=== PATIENT | female | born 1990 ===

== ENCOUNTER 2018-06-16 07:47 | Emergency (ER) | payer MEDICAID ==
[2018-06-16 07:47] VITALS: BMI 45.4
[2018-06-16 08:03] VITALS: TEMP 99.2
[2018-06-16] MEDS ORDERED: Sodium Chloride 0.9% 1,000 ML IV STA (08:26)
--- NOTE | 2018-06-16 08:43 | ED PDOC ---
Arrival/HPI - General Chief Complaint: Fever Time Seen by Provider: 06/16/18 07:50 Historian: Patient - History of Present Illness Narrative History of Present Illness (Text): 06/16/18 08:49 27 year old female, whose past medical history includes hypertension, asthma, hypthyroidism, and cholelithiasis, who presents to the emergency department complaining of fever, generalized body aches, and sinus congestion, for the past day. Patient notes her fever was 104 degrees at home and notes associated sore throat, cough, nausea, and chest discomfort. She states she has taken Motrin and Theraflu with no improvement. Of note, patent's LNMP was 1 week ago. She denies headache, dizziness, shortness of breath, dyspnea on exertion, abdominal pain, vomiting, diarrhea, back pain, neck pain, or any other complaint. Time/Duration: 24 hours Symptom Onset: Gradual Symptom Course: Unchanged Activities at Onset: Light Context: Home Past Medical History - Provider Review Nursing Documentation Reviewed: Yes - Past History Past History: No Previous - Infectious Disease Hx of Infectious Diseases: None - Tetanus Immunization Tetanus Immunization: Unknown - Reproductive Menopause: No - Past Medical History Past Medical History: No Previous - Cardiac Hx Hypertension: Yes Other/Comment: MORBID OBESITY - Pulmonary Hx Respiratory Disorders: No Hx Asthma: Yes (mild) - Neurological Hx Neurological Disorder: No - HEENT Hx HEENT Disorder: No - Renal Hx Renal Disorder: No - Endocrine/Metabolic Hx Endocrine Disorders: Yes Hx Hypothyroidism: Yes - Hematological/Oncological Hx Blood Disorders: No Hx AIDS: No - Integumentary Hx Dermatological Disorder: No - Musculoskeletal/Rheumatological Hx Musculoskeletal Disorders: No Hx Back Pain: Yes Hx Falls: Yes - Gastrointestinal Hx Gastrointestinal Disorders: Yes (CHOLELITHIASIS) - Genitourinary/Gynecological Hx Reproductive Disorders: Yes (C SECTION) - Psychiatric Hx Psychophysiologic Disorder: No Hx Substance Use: No - Surgical History Hx Cholecystectomy: Yes (2012) Other/Comment: removal of keloid both ears. Had received radiation for keloid - Anesthesia Hx Anesthesia: Yes Hx Anesthesia Reactions: No Hx Malignant Hyperthermia: No - Suicidal Assessment Feels Threatened In Home Enviroment: No Family/Social History - Physician Review Nursing Documentation Reviewed: Yes Family/Social History: No Known Family HX Smoking Status: Never Smoked Hx Alcohol Use: No Hx Substance Use: No Hx Substance Use Treatment: No Allergies/Home Meds Allergies/Adverse Reactions: Allergies No Known Allergies Allergy (Verified 03/25/15 16:27) Home Medications: Home Meds Medication Instructions Recorded Confirmed Bacitracin OINT 1 applic TP BID 03/27/15 03/29/15 Cyclobenzaprine [Cyclobenzaprine 10 mg PO TID 03/27/15 03/29/15 HCl] Levothyroxine [Synthroid] 25 mcg PO ACB 03/27/15 03/29/15 DULoxetine [Cymbalta] 20 mg PO DAILY 03/29/15 03/29/15 Gabapentin [Neurontin] 600 mg PO TID 03/29/15 03/29/15 Methylprednisolone [Medrol] 4 mg PO BID 03/29/15 03/29/15 methylPREDNISolone [Medrol] 4 mg PO DAILY 03/29/15 03/29/15 methylPREDNISolone 4 mg PO TID 03/29/15 03/29/15 [Methylprednisolone] oxyCODONE/Acetaminophen [Percocet 2 tab PO Q4 PRN 03/29/15 03/29/15 5/325 mg Tab] Review of Systems - Physician Review All systems were reviewed & negative as marked: Yes - Review of Systems Constitutional: Fevers, Other (generalized body aches) ENT: Sore Throat, Sinus Congestion Respiratory: Cough. absent: SOB Cardiovascular: Chest Pain Gastrointestinal: Nausea. absent: Abdominal Pain, Vomiting Genitourinary Female: absent: Dysuria, Frequency Musculoskeletal: absent: Back Pain, Neck Pain Neurological: absent: Headache, Dizziness Physical Exam Vital Signs Reviewed: Yes Vital Signs Temp Pulse Resp BP Pulse Ox 06/16/18 07:59 99.2 F 112 H 20 106/70 97 Temperature: Afebrile Blood Pressure: Normal Pulse: Tachycardic Respiratory Rate: Normal Appearance: Positive for: Well-Appearing, Non-Toxic, Comfortable Pain Distress: None Mental Status: Positive for: Alert and Oriented X 3 - Systems Exam Head: Present: Atraumatic, Normocephalic Pupils: Present: PERRL Extroacular Muscles: Present: EOMI Conjunctiva: Present: Normal Mouth: Present: Moist Mucous Membranes Pharnyx: Present: EXUDATE (exudate present on the left tonsil), TONSILS ENLARGED (bilateral tonsilar swelling) Nose (Internal): Present: Other (sinus pressure) Neck: Present: Normal Range of Motion. No: Lymphadenopathy (no cervical adenopathy noted) Respiratory/Chest: Present: Clear to Auscultation, Good Air Exchange. No: Respiratory Distress, Accessory Muscle Use Cardiovascular: Present: Regular Rate and Rhythm, Normal S1, S2. No: Murmurs Abdomen: Present: Other (abdomen soft). No: Tenderness, Distention, Peritoneal Signs Back: Present: Normal Inspection Upper Extremity: Present: Normal Inspection. No: Cyanosis, Edema Lower Extremity: Present: Normal Inspection. No: Edema Neurological: Present: GCS=15, CN II-XII Intact, Speech Normal Skin: Present: Warm, Dry, Normal Color. No: Rashes Psychiatric: Present: Alert, Oriented x 3, Normal Insight, Normal Concentration Medical Decision Making ED Course and Treatment: 06/16/18 08:34 Impression: 27 year old female who presents to the emergency department complaining of fever, generalized body aches, and sinus congestion. Differential Diagnosis included but are not limited to: Influenza Strep throat Plan: -- Labs -- Chest X-ray -- IV Fluids -- Toradol -- POC urine Test -- Influenza A B -- Rapid Strep -- Reassess and disposition Prior Visits: Notes and results from previous visits were reviewed. Progress Notes: - Lab Interpretations Lab Results: 06/16/18 09:05 06/16/18 09:05 Lab Results 06/16/18 09:05: Grp A Beta Strep Ag Positive H 06/16/18 09:05: Sodium 137, Potassium 3.6, Chloride 105, Carbon Dioxide 27, Anion Gap 8 L, BUN 7, Creatinine 0.7, Est GFR ( Amer) > 60, Est GFR (Non- Af Amer) > 60, Random Glucose 110, Calcium 8.7, Total Bilirubin 0.4, AST 19, ALT 21, Alkaline Phosphatase 75, Total Protein 7.1, Albumin 3.9, Globulin 3.3, Albumin/Globulin Ratio 1.2 06/16/18 09:05: Influenza Typ A,B (EIA) Negative for flu a/b 06/16/18 09:05: WBC 14.9 H, RBC 4.13, Hgb 11.3 L, Hct 34.7 L, MCV 84.0, MCH 27.4, MCHC 32.6, RDW 14.1, Plt Count 262, MPV 9.7, Neut % (Auto) 81.8 H, Lymph % (Auto) 8.4 L, Mckinley % (Auto) 9.6 H, Eos % (Auto) 0.1 L, Baso % (Auto) 0.1, Lymph # (Auto) 1.3, Mckinley # (Auto) 1.4 H, Eos # (Auto) 0.0, Baso # (Auto) 0.02, Absolute Neuts (auto) 12.21 H I have reviewed the lab results: Yes - RAD Interpretation Narrative RAD Interpretations (Text): 06/16/18 13:02 Chest X-ray reviewed by radiologist, shows: IMPRESSION: No active disease. Radiology Orders: 06/16/18 08:26 CHEST PORTABLE [RAD] Stat Community Placement Worker: Radiologist - Medication Orders Current Medication Orders: Sodium Chloride (Sodium Chloride 0.9%) 1,000 mls @ 999 mls/hr IV .Q1H1M STA Stop: 06/16/18 09:26 Discontinued Medications Ketorolac Tromethamine (Toradol) 30 mg IVP STAT STA Stop: 06/16/18 08:27 - Scribe Statement The provider has reviewed the documentation as recorded by the Scribe Aviva Neal Provider Scribe Attestation: All medical record entries made by the Scribe were at my direction and personally dictated by me. I have reviewed the chart and agree that the record accurately reflects my personal performance of the history, physical exam, medical decision making, and the department course for this patient. I have also personally directed, reviewed, and agree with the discharge instructions and d isposition. Disposition/Present on Arrival - Present on Arrival Any Indicators Present on Arrival: No History of DVT/PE: No History of Uncontrolled Diabetes: No Urinary Catheter: No History of Decub. Ulcer: No History Surgical Site Infection Following: None - Disposition Have Diagnosis and Disposition been Completed?: Yes Diagnosis: Strep pharyngitis Disposition: HOME/ ROUTINE Disposition Time: 09:44 Patient Plan: Discharge Condition: STABLE Discharge Instructions (ExitCare): Strep Throat (DC) Print Language: BRUNEIAN Additional Instructions: All medical record entries made by the Scribe were at my direction and personally dictated by me. I have reviewed the chart and agree that the record accurately reflects my personal performance of the history, physical exam, medical decision making, and the department course for this patient. I have also personally directed, reviewed, and agree with the discharge instructions and disposition. Please follow up with your PCP in 1 week Please take medications as prescribed. Prescriptions: Amoxicillin 500 mg PO BID 10 Days #20 tablet Mag&Al/Simet/Diphen/Lido [First Magic Mouthwash] 30 ml MM Q6H #1 kit Referrals: Surendra De La Garza MD [Primary Care Provider] - Follow up with primary Forms: [facility] (Austrian), WORK NOTE
[2018-06-16 08:52] VITALS: RESP 18
[2018-06-16 09:24] LABS: BASO # 0.02 K/mm3 (0.0-2.0); BASO % 0.1 % (0.0-3.0); EOS % 0.1 % (1.5-5.0); HEMOGLOBIN 11.3 g/dL (12.0-16.0); LYMPH # 1.3 (1.2-3.4); LYMPH % 8.4 % (22.0-35.0); MEAN CORPUSCULAR HEMOGLOBIN 27.4 pg (25.0-35.0); MEAN CORPUSCULAR HGB CONC 32.6 g/dl (31.0-37.0); MEAN PLATELET VOLUME 9.7 fl (7.0-11.0); MONO # 1.4 (0.1-0.6); MONO % 9.6 % (1.0-6.0); RBC 4.13 10^6/uL (3.5-6.1); RED CELL DISTRIBUTION WIDTH 14.1 % (11.5-14.5); WHITE BLOOD COUNT 14.9 10^3/uL (4.5-11.0)
[2018-06-16 09:33] LABS: ALB/GLOB RATIO 1.2 (1.1-1.8); ALBUMIN 3.9 g/dL (3.0-4.8); ALT/SGPT 21 U/L (7-56); AST/SGOT 19 U/L (14-36); BLOOD UREA NITROGEN 7 mg/dL (7-21); CALCIUM 8.7 mg/dL (8.4-10.5); GFR NON-AFRICAN AMERICAN > 60
[2018-06-16 09:57] VITALS: BP 110/71; PULSE 96
[2018-06-16] MEDS ORDERED: Aluminum Hydroxide/Magnesium 30 ML, DiphenhydrAMINE 75 MG, Lidocaine 2% Viscous 30 ML PO STA (10:02)
--- NOTE | 2018-06-16 11:13 | RAD ---
Date of service: 06/16/2018 HISTORY: myalgias COMPARISON: 04/08/2014 FINDINGS: LUNGS: No active pulmonary disease. PLEURA: No significant pleural effusion identified, no pneumothorax apparent. CARDIOVASCULAR: No aortic atherosclerotic calcification present. Normal cardiac size. No pulmonary vascular congestion. OSSEOUS STRUCTURES: No significant abnormalities. VISUALIZED UPPER ABDOMEN: Normal. OTHER FINDINGS: None. IMPRESSION: No active disease.
[2018-06-16 11:19] VITALS: O2SAT 99
== END 2018-06-16 11:19 | disposition home or self-care (01) ==
LOC: ED 07:47
DX: J02.0 Streptococcal pharyngitis (principal); I10 Essential (primary) hypertension; E03.9 Hypothyroidism, unspecified
CPT/HCPCS: 71045; 80053; 81025; 85025; 87430; 87804; 96361; 96374; 99283; J1885; J7030